=== PATIENT | female | born 1985 | race Caucasian/White ===

== ENCOUNTER 2018-01-08 06:00 | Inpatient (IN) | payer OTHER ==
[2018-01-08] MEDS ORDERED: CARBOPROST TROMETHAMINE 250 MCG/ML 1 ML AMP IM PRN (06:16)
[2018-01-08] MEDS ORDERED: OXYTOCIN 10 UNIT/ML 1 ML VIAL IM PRN (06:16)
[2018-01-08] MEDS ORDERED: METHYLERGONOVINE 0.2 MG/ML 1 ML AMP IM PRN (06:16)
[2018-01-08] MEDS ORDERED: TERBUTALINE 1 MG/ML VIAL SQ PRN (06:16)
[2018-01-08] MEDS ORDERED: LIDOCAINE 1% (PF) 10 MG/ML (30 ML SDV) SQ PRN (06:16)
[2018-01-08] MEDS: LACTATED RINGERS 1,000 ML IV SCH ×3 (06:26→14:41)
[2018-01-08] MEDS ORDERED: OXYTOCIN 20 UNITS/1000 ML NS 1,000 ML IV SCH ×2 (06:30→18:15)
[2018-01-08 06:35] LABS: Basophils % (A) 0 %; Eosinophils # (A) 0.1 k/uL (0-0.7); Eosinophils % (A) 2 %; HCT 35.2 % (34.0-46.0); HGB 12.1 gm/dL (11.4-16.0); Lymphocytes # (A) 1.8 k/uL (1.0-4.8); Lymphocytes % (A) 24 %; MCH 30.1 pg (25.0-35.0); MCHC 34.5 g/dL (31.0-37.0); MCV 87.3 fL (80.0-100.0); Mean Platelet Volume 7.5; Monocytes # (A) 0.5 k/uL (0-1.0); Monocytes % (A) 7 %; Neutrophils # (A) 5.1 k/uL (1.3-7.7); Neutrophils % (A) 66 %; Platelet Count 211 k/uL (150-450); RBC 4.03 m/uL (3.80-5.40); RDW 12.7 % (11.5-15.5); WBC 7.8 k/uL (3.8-10.6)
[2018-01-08] MEDS ORDERED: BUPIVACAINE (PF) 0.25% 30 ML VIAL ONE (14:04)
[2018-01-08] MEDS ORDERED: ePHEDrine SULFATE/0.9% NACL/PF 50 MG/5 ML SYRINGE IV ONE (14:04)
[2018-01-08] MEDS ORDERED: fentaNYL (PF) 50 MCG/ML 5 ML AMP ONE (14:04)
[2018-01-08] MEDS ORDERED: SODIUM CHLORIDE 0.9% 100 ML BAG ONE (14:04)
[2018-01-08] MEDS ORDERED: BUPIVACAINE (PF) 0.25% 25 ML, fentaNYL (PF) 200 MCG in SODIUM CHLORIDE 0.9% 71 ML EPIDURAL ONE (14:21)
[2018-01-08] MEDS ORDERED: HYDROCORTISONE 2.5% RECTAL CREAM 30 GM TUBE RECTAL PRN (18:12)
[2018-01-08] MEDS ORDERED: ACETAMINOPHEN TAB 325 MG TAB PO PRN (18:12)
[2018-01-08] MEDS ORDERED: SIMETHICONE 80 MG CHEWABLE PO PRN (18:12)
[2018-01-08] MEDS ORDERED: WITCH HAZEL 1 EACH MED..PAD TOPICAL PRN (18:12)
[2018-01-08] MEDS ORDERED: diphenhydrAMINE 50 MG CAP PO PRN (18:12)
[2018-01-08] MEDS ORDERED: BENZOCAINE/MENTHOL SPRAY 1 GM/SPRAY AEROSOL TOPICAL PRN (18:12)
[2018-01-08] MEDS ORDERED: LANOLIN CREAM 5 GM TUBE TOPICAL PRN (18:12)
[2018-01-08] MEDS ORDERED: diphenhydrAMINE 50 MG/ML 1 ML VIAL IVP PRN ×2 (18:12)
[2018-01-08] MEDS ORDERED: ZOLPIDEM 5 MG TAB PO PRN (18:12)
[2018-01-08] MEDS ORDERED: IBUPROFEN 600 MG TAB PO PRN (18:12)
[2018-01-08] MEDS ORDERED: diphenhydrAMINE 25 MG CAP PO PRN (18:12)
--- NOTE | 2018-01-08 18:16 | P.HPOB ---
History of Present Illness H&P Date: 01/08/18 Chief Complaint: IUP at 39-2/7 weeks, elective induction of labor This is a very pleasant 32-year-old 2 para 1001 at 39-2/7 weeks with an estimated date of confinement of 01/13/2018. Patient added was admitted to labor and delivery this morning for elective induction of labor. Patient denied complaints at that time. She noted good movement and occasional contractions. She denied loss of fluid or vaginal bleeding. Next On. No blood work she had a blood type of O+, rubella immune, hepatitis B surface antigen negative, HIV negative, GBS negative. Her course has been uneventful Review of Systems Constitutional: Reports chills, Reports fever, Denies fatigue Cardiovascular: Reports edema Respiratory: Denies cough, Denies dyspnea Gastrointestinal: Denies constipation, Denies diarrhea Genitourinary: Reports Past Medical History Past Medical History: No Reported History History of Any Multi-Drug Resistant Organisms: None Reported Additional Past Surgical History / Comment(s): wisdom teeth Past Anesthesia/Blood Transfusion Reactions: No Reported Reaction Past Psychological History: No Psychological Hx Reported Smoking Status: Never smoker Past Alcohol Use History: None Reported Past Drug Use History: None Reported - Past Family History Sister(s) Family Medical History: Thyroid Disorder Mother Family Medical History: Hyperlipidemia, Hypertension Father Family Medical History: Hyperlipidemia, Hypertension Medications and Allergies Home Medications Medication Instructions Recorded Confirmed Type Pnv 11/Iron Fum/Folic Acid/Om3 1 each PO DAILY 01/08/18 01/08/18 History [Virt-Alberto Dha Softgel] Allergies Allergy/AdvReac Type Severity Reaction Status Date / Time No Known Allergies Allergy Verified 01/08/18 06:15 Exam Osteopathic Statement: *. No significant issues noted on an osteopathic structural exam other than those noted in the History and Physical/Consult. - Vital Signs Vital signs: Vital Signs Temp Pulse Resp BP 01/08/18 06:22 97.2 F L 98 16 128/89 Intake and Output 01/08/18 01/08/18 01/08/18 06:59 14:59 22:59 Intake Total 1500 Balance 1500 Intake: Intake, IV Titration 1500 Amount Lactated Ringers 1,000 ml 1500 @ 125 mls/hr IV .Q8H [facility] Rx#:[id number] Other: Weight 93.44 kg - OBG Physical Exam Abdomen: Gravid Cervix: 1-2/50/-2, amniotomy was performed with clear fluid noted Uterus: enlarged Results Result Diagrams: 01/08/18 06:20 Assessment and Plan (1) Term Current Visit: Yes Status: Acute Code(s): Z34.80 - ENCOUNTER FOR SUPRVSN OF NORMAL , UNSP TRIMESTER SNOMED Code(s): 79802539 Plan: Will admit for Pitocin induction of labor. Epidural when requested per patient , anticipate spontaneous vaginal delivery later this afternoon.
--- NOTE | 2018-01-08 18:18 | P.PROBDLV ---
Vaginal Delivery Note - . Vaginal Delivery Note: This is a very pleasant 32-year-old 2 para 1001 presented early this morning for elective induction of labor. Pitocin induction was started she was 1-2 cm and amniotomy was performed clear fluid was obtained. Patient progressed through labor eventually getting an epidural for analgesia. Patient progressed to complete and had a normal spontaneous vaginal delivery of a viable female at 1754, weight of 7 lbs. 12 oz., Apgars of 9 and 9. "Yudelka " Patient was noted to be the head was then delivered in occiput anterior presentation, gentle traction downward was utilized to deliver the anterior shoulder gentle upward traction to deliver the posterior shoulder a loose nuchal cord was delivered through the infant's body was then delivered and placed on the maternal abdomen. A spontaneous cry was noted at . Afterwards the cord was doubly clamped and cut, after delayed two-minute interval. The placenta was then delivered intact with three-vessel cord was noted. The vaginal vault was then inspected first-degree vaginal laceration was noted this was repaired in the usual fashion with 3-0 repeat. Bilateral labial lacerations were noted hemostatic in nature. A rectal exam was performed and no abnormalities were noted. Next History blood loss was approximately 300 mL, mother and tolerated delivery well and are resting comfortably
[2018-01-08] MEDS: SENNOSIDES-DOCUSATE SODIUM 1 EACH TAB PO SCH (20:58)
--- NOTE | 2018-01-09 08:04 | P.DS ---
Providers Date of admission: 01/08/18 06:04 Expected date of discharge: 01/09/18 Attending physician: Betzaida Miranda Primary care physician: Cassia Mcdaniel - Discharge Diagnosis(es) (1) Term Current Visit: Yes Status: Acute (2) Status post vaginal delivery Current Visit: Yes Status: Acute Hospital Course: This is a very pleasant 32-year-old 2 para 1001 at 39-2/7 weeks that presented on 52 for elective induction of labor. Pitocin induction labor was begun and amniotomy was performed and clear fluid was obtained. Patient progressed through labor eventually getting an epidural for analgesia. Patient progressed to complete and had a normal spontaneous vaginal delivery of a viable female infant at 1754, weight of 7 lbs. 12 oz., Apgars of 9 and 9 at one and 5 minutes respectively. Patient's course has been uneventful. She is ambulating and voiding without difficulty. She denies concerns. She states her pain is well-controlled. She is breast-feeding without difficulty. Her lochia is moderate. She wishes discharge home at 24 hours. Patient Condition at Discharge: Good Plan - Discharge Summary New Discharge Prescriptions: No Action Pnv 11/Iron Fum/Folic Acid/Om3 [Virt-Alberto Dha Softgel] 1 each PO DAILY Discharge Medication List Pnv 11/Iron Fum/Folic Acid/Om3 [Virt-Alberto Dha Softgel] 1 each PO DAILY 01/08/18 [History] Follow up Appointment(s)/Referral(s): Betzaida Miranda DO [Doctor of Osteopathic Medicine] - 4 Weeks Patient Instructions/Handouts: Vaginal Delivery (DC) Discharge Disposition: HOME SELF-CARE
[2018-01-09] MEDS: SENNOSIDES-DOCUSATE SODIUM 1 EACH TAB PO SCH (09:48)
[2018-01-09 10:48] VITALS: RESP 18
[2018-01-09 17:50] VITALS: BP 137/77; PULSE 74; TEMP 98
== END 2018-01-09 19:50 | disposition home or self-care (01) | DRG 775 ==
LOC: 4FBP 06:04 → MERGE 01-13 10:56
PROVIDERS: ADMIT Obstetrics & Gynecology Obstetrics; ATTEND Obstetrics & Gynecology Obstetrics
PROC: 10907ZC Drainage of Amniotic Fluid, Therapeutic from Products of Conception, Via Natural or Artificial Opening (ICD-10-PCS; principal; 2018-01-08)
PROC: 3E0R3NZ Introduction of Analgesics, Hypnotics, Sedatives into Spinal Canal, Percutaneous Approach (ICD-10-PCS; principal; 2018-01-08)
PROC: 00HU33Z Insertion of Infusion Device into Spinal Canal, Percutaneous Approach (ICD-10-PCS; principal; 2018-01-08)
PROC: 3E033VJ Introduction of Other Hormone into Peripheral Vein, Percutaneous Approach (ICD-10-PCS; principal; 2018-01-08)
PROC: 0HQ9XZZ Repair Perineum Skin, External Approach (ICD-10-PCS; principal; 2018-01-08)
DX: O69.81X0 Labor and delivery complicated by cord around neck, without compression, not applicable or unspecified (principal); Z37.0 Single live birth; O70.0 First degree perineal laceration during delivery; Z3A.39 39 weeks gestation of pregnancy
CPT/HCPCS: 85025; 88307

== ENCOUNTER → 2023-09-04 | Outpatient (CLI) | payer BC ==
--- NOTE | 2023-09-04 11:15 | MM ---
Reason for Exam: Screening (asymptomatic). Last mammogram was performed 8 year(s) and 0 month(s) ago. Patient History: Menarche at age 11. First Full-Term at age 26. Premenopausal. Hormonal Contraceptives for 2 years from age 27 until age 29. Risk Values: Anat 5 year model risk: 0.6%. NCI Lifetime model risk: 11.1%. Prior Study Comparison: 09/06/2015 Bilateral Diagnostic Mammogram, [facility]. Tissue Density: There are scattered fibroglandular densities. Findings: Analyzed By CAD. There is no suspicious group of microcalcifications or new suspicious mass. Overall Assessment: Negative, BI-RAD 1 Management: Screening Mammogram of both breasts in [address] [facility] will attempt to contact patient to return for supplemental views and ultrasound if indicated. Patient should continue monthly self-breast exams. A clinical breast exam by your physician is recommended on an annual basis. This exam should not preclude additional follow-up of suspicious palpable abnormalities. Note on Anat scores and lifetime risk: 1. A Anat score greater than 3% is considered moderate risk. If this is the case, consider specialist referral to assess eligibility for a risk reducing agent. 2. If overall lifetime risk for the development of breast cancer is 20% or higher, the patient may qualify for future screening with alternating mammogram and breast MRI. Electronically signed and approved by: Gabriel Sher DO
== END | disposition home or self-care (01) ==
LOC: RADMAMWWP 07:57
PROVIDERS: ATTEND Obstetrics & Gynecology Obstetrics
DX: Z12.31 Encounter for screening mammogram for malignant neoplasm of breast (principal)
CPT/HCPCS: 77067